=== PATIENT | female | born 1930 | race Caucasian/White ===

== ENCOUNTER 2017-01-12 07:40 | Inpatient (IN) | payer MEDICARE, OTHER ==
[2017-01-12] MEDS ORDERED: ONDANSETRON HCL/PF 2 MG/ML VIAL IV ONE ×2 (08:35→10:36)
[2017-01-12] MEDS ORDERED: HYDROmorphone HCL 1 MG/ML DISP.SYRIN IV ONE ×2 (08:35→10:17)
[2017-01-12] MEDS ORDERED: HYDROmorphone HCL 1 MG/ML DISP.SYRIN ONE ×2 (08:40→10:37)
[2017-01-12] MEDS ORDERED: ONDANSETRON HCL/PF 2 MG/ML VIAL ONE ×2 (08:40→10:37)
--- NOTE | 2017-01-12 08:43 | ERNOTE ---
Abdominal HPI - General Chief Complaint: Nausea/Vomiting Time Seen by Provider: 01/12/17 08:26 Source: patient, family Exam Limitations: no limitations - Immun/Allergies/Home Medications Immunizatons: IMMUNIZATION HX Immunizations Up to Date Yes History of Influenza Vaccine No Hx Pneumococcal Vaccination No Allergies/Adverse Reactions: Allergies ketoprofen [From Oruvail] Adverse Reaction (Mild, Verified 01/12/17 14:03) stomach pain methadone [Methadone] Adverse Reaction (Mild, Verified 01/12/17 14:03) nausea, dizziness Sulfa (Sulfonamide Antibiotics) Adverse Reaction (Mild, Verified 01/12/17 14:03) Nausea Home Medications: HOME MEDICATIONS Albuterol Sulfate [Proventil Hfa] 2 inh IH Q4H PRN 06/03/13 [Last Taken Unknown] Metoprolol Tartrate [Lopressor] 25 mg PO BID 06/03/13 [Last Taken Unknown] Furosemide [Lasix] 40 mg PO DAILY PRN 07/04/15 [Last Taken Unknown] traMADol HCL [Ultram] 50 mg PO Q6H 07/04/15 [Last Taken Unknown] traMADol HCL [Ultram] 100 mg PO HS 08/01/15 [Last Taken Unknown] Apixaban [Eliquis] 5 mg PO BID 01/12/17 [Last Taken Unknown] Cyanocobalamin (Vitamin B-12) [Vitamin B12] 1,000 mcg PO DAILY 01/12/17 [Last Taken Unknown] - History of Present Illness Narrative: Patient started to vomit last night and has been dry heaving since. shortly after the vomiting started she also started to have right lower back pain ( severe, no aggravated by movement).She denies any abdominal pain, no diarrhea, no chest pain , no cough. Per her daughter she had similar pains last fall, was admitted for possible UTI and broke out with a shingles rash a few days later. Date (Duration): 01/11/17 Time (Timing): 21:00 Timing: constant Quality: severe, aching Activities at Onset: none Modifying Factors - (Worsens): Absent: breathing, movement Review of Systems - Review of Systems Constitutional: Absent: recent illness, fever, chills ENT: Present: nasal drainage. Absent: nose congestion, sore throat Respiratory: Absent: shortness of breath, cough Cardiology: Present: See HPI Gastrointestinal/Abdominal: Present: See HPI Genitourinary: Present: no symptoms reported Musculoskeletal: Present: back pain Skin: Absent: rash Neurological: Absent: headache, weakness, numbness - Patient's Past Medical History Patient History - Medical: Arthritis, Cataracts, Chronic Pain, GERD, Osteoarthritis, UTI'S, Other Patient History - Cardiac/Respiratory: Hypertension Patient History - Cancer: No Hx of Cancer Patient History - Surgical Procedures: Hysterectomy, Total Hip Replacement, Other Patient History - Other: None - Family History Sister Family History - Medical: , Rheumatoid Arthritis Mother Family History - Medical: Father Family History - Medical: Family History - Cardiac/Respiratory: Coronary Heart Disease, COPD - Social History Living Situations: spouse Abuse History: No History of abuse Psych History: No pertinent hx Does anyone smoke in the home?: No Smoking Status: Never smoker Alcohol Use: none Drug Use: none - Immunizations Immunizations Up to Date: Yes Hx Pneumococcal Vaccination: No History of Influenza Vaccine: No Physical Exam - Physical Exam General Appearance: Present: wd/wn, alert, no apparent distress, anxious Eye Exam: Normal inspection: bilateral Ears, Nose, Throat: Present: normal ENT inspection, normal pharynx Respiratory: Present: no respiratory distress, no accessory muscle use, chest nontender, rales - throughout Cardiovascular/Chest: Present: regular rate, rhythm, systolic murmur Gastrointestinal/Abdominal: Present: normal bowel sounds, nontender, nondistended, soft Back Exam: Present: normal inspection, normal range of motion, no CVA tenderness Extremity Exam: Present: no edema Neurological Exam: Present: alert, oriented, normal mood/affect Skin Exam: Present: normal color, warm/dry ED Progress - Results and Orders Patient's Lab Results:: I have reviewed the patient's lab results. - Vital Signs Patient's Vital Signs:: I have reviewed the patient's vital signs. Vital Signs: Vital Signs 01/12/17 08:17 Temperature 36.6 C Pulse Rate 93 Respiratory 13 Rate Blood Pressure 169/106 O2 Sat by Pulse 93 Oximetry - EKG EKG: atrial fibrillation, nonspecific ST T wave changes, other - PVCs EKG read: Interp. by me - X-Ray X-Ray #1 X-Ray: chest - left lower lobe infiltrate Interpretation: Reviewed by me X-Ray #2 X-Ray: abdomen - no acute Interpretation: Reviewed by me - Progress/Reassessment Chief Complaint: Nausea/Vomiting Progress Note-Subjective: 01/12/17 10:16 explained results to patient and family, suggested admission for pneumonia, agreed denies cough, shortness of breath or chest pain 01/12/17 10:40 discussed with patsy Silvestre to admit for observation, start rocephin and zithromax IV will admit because of patients age Departure - Departure Clinical Impression: Pneumonia Qualifiers: Pneumonia type: due to unspecified organism Laterality: left Lung location: lower lobe of lung Qualified Code(s): J18.1 - Lobar pneumonia, unspecified organism Disposition: [facility] Condition: Good
[2017-01-12 08:51] LABS: Hemoglobin 12.7 gm/dL (12.5-16.0); Mean Cell Volume 99.8 fl (78-100); Mean Corpuscular Hemoglobin 31.7 pg (27-31); Mean Corpuscular Hgb Conc 31.8 g/dl (32-36); Mean Platelet Volume 10.2 fl (6.0-9.5); Neutrophil # 11.6 K/mm3 (1.3-6.0); Neutrophil % 83.5 % (42-75.0); Platelet Count 189 K/mm3 (150-450); Red Blood Count 4.01 M/mm3 (4.2-5.4); White Blood Count 13.9 K/mm3 (4.0-10.5)
--- OUTSIDE RECORDS SUMMARY | 2017-01-12 08:58 | XMS REPORT | Continuity of Care Document ---
:1930 Author Organization [facility] ([facility]) [place] [address] Phone [phone] Care Team Providers Name Role Phone Sierraqingerica Franciaclayton Primary Care Provider [phone] Source Comments This disclosure is being made pursuant to the Care Everywhere program, applicable federal and state laws, and may not contain all informaitonavailable regarding this patient.[facility] ([facility]) Active Allergies and Adverse Reactions No Known Allergies Current Medications Prescription Sig. Disp. Refills Start Date End Date Status lisinopril 10 mg tablet Take by mouth Active daily. cyanocobalamin (VITAMIN Take 1,000 mcg by Active B-12) 1,000 mcg tablet mouth daily. Cholecalciferol, Vitamin Take by mouth. Active D3, (VITAMIN D) 1,000 unit Cap Ascorbic Acid (VITAMIN C) Take by mouth. Active 1,000 mg Tab warfarin 2 mg tablet Take 2 mg by Active mouth daily. OXYCODONE HCL/ACETAMINOPHEN Take by mouth Active (ENDOCET PO) every 4 hours as needed. Active Problems Not on file Social History Tobacco Use Types Packs/Day Years Used Date Never Smoker Alcohol Use Drinks/Week oz/Week Comments No Last Filed Vital Signs Vital Sign Reading Time Taken Blood Pressure 133/81 02/13/2011 2:12 PM CDT Pulse 95 02/13/2011 2:12 PM CDT Temperature - - Respiratory Rate - - Height 1.56 m (5' 1.42") 02/13/2011 2:12 PM CDT Weight 91.7 kg (202 lb 2.6 oz) 02/13/2011 2:12 PM CDT Body Mass Index 37.68 02/13/2011 2:12 PM CDT Oxygen Saturation - - Plan of Care Health Maintenance Due Date Last Done Comments Hepatitis B Vaccine (1 of 3 - Primary Series) 1930 Tdap Vaccine 1940 Lipid Disorder Screening 1947 Td Vaccine 1947 Zoster Vaccine 1989 Pneumococcal Vaccine (1 of 2 - PCV13) 1994 Influenza Vaccine: Seasonal (#1) 04/28/2016 Results from Last 3 Months Not on file
[2017-01-12 09:08] LABS: Albumin * 3.6 gm/dl (3.4-5.0); Anion Gap 13.3 mmol/L (6.8-13.8); BUN/Creatinine Ratio 25.3 (9.0-21.6); Bilirubin, Total 0.9 mg/dL (0.0-1.1); Carbon Dioxide 28.9 mmol/L (24-32.6); Potassium 4.2 mmol/L (3.4-4.6); Total Protein 7.3 gm/dL (6.2-8.2); Troponin I 0.018 ng/ml (0.00-0.10)
[2017-01-12 10:56] LABS: Urine Bilirubin Negative (NEGATIVE); Urine Blood 50 /ul (NEGATIVE); Urine Ketone Negative (NEGATIVE); Urine Nitrite Negative (NEGATIVE); Urine Protein 30 mg/dL (NEGATIVE); Urine Specific Gravity 1.025 SP.GR. (1.005-1.010); Urine Urobilinogen Normal (NORMAL); Urine pH 6.5 pH (5.0-7.0)
--- OUTSIDE RECORDS SUMMARY | 2017-01-12 11:02 | XMS REPORT | Continuity of Care Document ---
:1930 Author Organization [facility] ([facility]) [place] [address] Phone [phone] Care Team Providers Name Role Phone Sierraqingerica Franciaclayton Primary Care Provider [phone] Source Comments This disclosure is being made pursuant to the Care Everywhere program, applicable federal and state laws, and may not contain all informaitonavailable regarding this patient.[facility] ([facility]) Active Allergies and Adverse Reactions No Known [...]
[2017-01-12 11:04] LABS: Urine Appearance Slightly Cloudy; Urine Bacteria 1+; Urine Color Yellow
[2017-01-12] MEDS ORDERED: AZITHROMYCIN 500 MG in DEXTROSE 5 % IN WATER 250 ML IV SCH ×2 (12:00)
[2017-01-12] MEDS ORDERED: ONDANSETRON HCL/PF 2 MG/ML VIAL IV PRN (12:17)
[2017-01-12] MEDS ORDERED: DEXTROSE 5%-NORMAL SALINE 1,000 ML IV PRN (12:19)
[2017-01-12] MEDS: ONDANSETRON HCL/PF 2 MG/ML VIAL IV PRN ×3 (13:11→20:46)
[2017-01-12] MEDS ORDERED: ALBUTEROL SULFATE 2.5 MG/3 ML VIAL.NEB IH PRN (13:16)
[2017-01-12] MEDS: oxyCODONE HCL/ACETAMINOPHEN 1 TAB TABLET PO PRN ×3 (13:21→21:31)
[2017-01-12] MEDS ORDERED: FUROSEMIDE 10 MG/ML VIAL IV ONE (14:40)
--- NOTE | 2017-01-12 14:43 | HP ---
Chief Complaint - Chief Complaint Date of Service: 01/12/17 Time of Service: 14:38 Chief Complaint: Increasing back pain from 01/11/17. History of Present Illness: 86-year-old woman with a history of chronic A. fib on Eliquis , HLD, HTN, OA, B12 deficiency, obesity and remote history of CHF who brought to the ER for evaluation of increasing back pain, abdominal pain and nausea of approximately 1 day duration. She denies any cough/shortness of breath. Abnormal findings included elevated WBC 13.9, possible infiltrate/consolidation in LEFT mid/lower lung sood and vascular markings, increased BNP 3809 and possible UTI. Patient received CTX 1 g IV and azithromycin 500 mg IV in the ER and was admitted into observation. - Patient's Past Medical History Additional info: PAST MEDICAL HISTORY: Atrial Fibrillation - 2003 on chronic warfarin therapy - had bleeding into leg in 2014- warfarin DC'd and started Eliquis; CHF - 1988-severe MR, with edema. , COPD, Hypertension, Hyperlipidemia. Severe osteoarthritis controlled with tramadol ; obesity; UTIs; GERD; chronic pain; cataracts. Shingles Patient History - Cancer: No Hx of Cancer Additional Info: PAST SURGICAL HISTORY: Hysterectomy - EULOGIO/[id number]; JUNI L4-L5 1998;Total Hip Replacement - RT-09/1999. Patient History - Other: None - Family History Sister Family History - Medical: - 37- rheumatoid arthritis Mother Family History - Medical: - 68Parkinson's disease Father Family History - Medical: - 78CAD, COPD - Social History Living Situations: spouse Abuse History: No History of abuse Psych History: No pertinent hx Does anyone smoke in the home?: No Smoking Status: Never smoker Have you smoked in the past 12 months: No Do you dip or chew tobacco: No Patient requests Smoking Cessation Consult: No Initiate information on Smoking Cessation: No Alcohol Use: none Drug Use: none - Immunizations Immunizations Up to Date: Yes Hx Pneumococcal Vaccination: No History of Influenza Vaccine: No Review Of Systems (GEN) - Review of Systems Cardiac: Absent: Chest Pain, Edema Abdominal: Present: Nausea. Absent: Vomiting Musculoskeletal: Present: Back Pain Allergies/Adverse Reactions: Allergies Allergy/AdvReac Type Severity Reaction Status Date / Time ketoprofen [From Oruvail] AdvReac Mild stomach Verified 01/12/17 14:03 pain methadone [Methadone] AdvReac Mild nausea, Verified 01/12/17 14:03 dizziness Sulfa (Sulfonamide AdvReac Mild Nausea Verified 01/12/17 14:03 Antibiotics) Home Medications: HOME MEDICATIONS Albuterol Sulfate [Proventil Hfa] 2 inh IH Q4H PRN 06/03/13 [Last Taken Unknown] Metoprolol Tartrate [Lopressor] 25 mg PO BID 06/03/13 [Last Taken Unknown] Furosemide [Lasix] 40 mg PO DAILY PRN 07/04/15 [Last Taken Unknown] traMADol HCL [Ultram] 50 mg PO Q6H 07/04/15 [Last Taken Unknown] traMADol HCL [Ultram] 100 mg PO HS 08/01/15 [Last Taken Unknown] Apixaban [Eliquis] 5 mg PO BID 01/12/17 [Last Taken Unknown] Cyanocobalamin (Vitamin B-12) [Vitamin B12] 1,000 mcg PO DAILY 01/12/17 [Last Taken Unknown] Exam - Exam Vital Signs: Vital Signs - Last Taken Temp 36.8 C 01/12/17 14:24 Pulse 91 01/12/17 14:24 Resp 18 01/12/17 14:24 BP 129/85 01/12/17 14:24 Pulse Ox 99 01/12/17 14:24 Constitutional: Present: Elderly, Obese - looks uncomfortable. ENT Exam: Present: hearing grossly normal, moist mucous membranes Eye Exam: bilateral eye: PERRL, EOMI Neck: Present: normal inspection, trachea midline Respiratory: Present: normal breath sounds, no accessory muscle use Cardiovascular/Chest: Present: systolic murmur - III/ at LSB radiating to axilla, irregularly irregular Abdomen: Present: Normal bowel sounds, soft, nontender, nondistended, obese /Rectal: Present: Exam deferred Extremity: Present: normal inspection. Absent: lower extremity edema Skin Exam: Present: normal color, warm/dry Neurologic: Present: alert, oriented x 3. Absent: depressed affect Eye contact: Present: cooperative, good eye contact, normal speech Thoughts: Present: normal thought pattern, normal mood /affect Diagnostic Studies: Laboratory Tests 01/12/17 08:45 WBC 13.9 H Hgb 12.7 Hct 40.0 Plt Count 189 01/12/17 08:45 Plasma Sodium 140 Potassium 4.2 Chloride 101 Carbon Dioxide 28.9 BUN 22 Creatinine 0.87 Est GFR (Non-Af Amer) 65 Random Glucose 150 H Calcium Adj for Albumin 9.0 Total Bilirubin 0.9 AST 20 ALT 16 L Alkaline Phosphatase 96 Albumin 3.6 01/12/17 08:45 Troponin I 0.018 B-Natriuretic Peptide 3809 H 01/12/17 08:36 Urine pH 6.5 Ur Specific [place] 1.025 Urine Protein 30 H Urine Blood 50 H Ur Leukocyte Esterase Negative Urine RBC 10-25 H Urine WBC 5-10 H Ur Epithelial Cells 0-5 Urine Bacteria 1+ H Urine Culture Comments Culture to follow CXR: Single portable AP view 08:35. 1. Left lower lobe consolidation suggested. 2. Pulmonary vascular condition suggested. 3. Stable cardiomegaly. Trachea in normal position. No pneumothorax/pleural fluid collections apparent. 4. DJD of spine/shoulders present. Assessment/Plan - Narrative Narrative: 1. Back pain with nausea: Symptoms nonspecific- could be related to UTI/pneumonia. Patient has chronic back pain for which she takes tramadol. No s/s of pneumonia, lung exam is normal. Urine culture pending. Try ondansetron for nausea and oxycodone/ acetaminophen for back pain for which she has taken in the past. Patient already received CTX 1 g IV and azithromycin 500 mg IV in ER. Repreat CXR PA and LAT in AM and check for Urine C/S prior to changing antibiotics. 2. Possible CHF: By CXR and BNP. Furosemide 60 mg IV 1. Spironolactone 25 mg PO x1. Strict I/ O. Check BMP in a.m. 3. Osteoarthritis with pain: On tramadol 50 mg 3 times a day and 100 mg at bedtime. 4. Chronic A. fib: On Eliquis 5 mg PO BID.
[2017-01-12] MEDS ORDERED: SPIRONOLACTONE 25 MG TABLET PO ONE (15:00)
[2017-01-13] MEDS: oxyCODONE HCL/ACETAMINOPHEN 1 TAB TABLET PO PRN (01:40)
[2017-01-13] MEDS: ONDANSETRON HCL/PF 2 MG/ML VIAL IV PRN (04:31)
[2017-01-13 06:06] LABS: Hematocrit 40.9 % (37.0-47.0); Hemoglobin 13.5 gm/dL (12.5-16.0); Mean Cell Volume 98.8 fl (78-100); Mean Corpuscular Hemoglobin 32.6 pg (27-31); Mean Platelet Volume 10.6 fl (6.0-9.5); Platelet Count 193 K/mm3 (150-450); Red Blood Count 4.14 M/mm3 (4.2-5.4); Red Cell Distribution Width 12.8 % (11.5-14.0); White Blood Count 19.1 K/mm3 (4.0-10.5)
[2017-01-13 06:09] LABS: Total Cells Counted 100
[2017-01-13 06:25] LABS: Band 2 % (0-2.0); Immature Granulocyte 1 (0-1); Lymphocyte 6 % (20-51); Monocyte 9 % (0-9); Neutrophil 82 % (42-75); Neutrophil # 15.7 K/mm3 (1.3-6.0); Platelet Estimate Normal (NORMAL); RBC Morphology Normal (NORMAL)
[2017-01-13 06:27] LABS: Anion Gap 10.7 mmol/L (6.8-13.8); BUN/Creatinine Ratio 18.3 (9.0-21.6); Calcium * 8.7 mg/dL (7.9-10.9); Carbon Dioxide 33.8 mmol/L (24-32.6); Estimated Creat Clear 32.9; Potassium 3.5 mmol/L (3.4-4.6)
[2017-01-13] MEDS ORDERED: PROMETHAZINE HCL 25 MG/ML AMPUL IM ONE (08:01)
--- NOTE | 2017-01-13 08:09 | PN ---
Subjective - Date and Time Seen Date: 01/13/17 Time: 07:55 Subjective Narrative: Liz is an 86 year old female admitted with LLL consolidation suspicious for pneumonia with vascular congestion and UTI - currently on IV rocephin. received azithromycin in the ER. patient was given lasix 60 mg IV yesterday with spironolactone 25 mg po x1. weight 87.2-->79.5 kg, I/Os -1445 ml in 24 hours. urine culture prelim has no growth. history of chronic afib on eliquis. wbc elevated 13.9 --> 19.1 with 82 neutrophils and 2 bands. chest xray done this am. Objective - Review of Systems Generalized/Overall Review: Reports: Malaise EENTM: Reports: No Symptoms Reported Respiratory: Reports: No Symptoms Reported Cardiac: Reports: No Symptoms Reported Abdominal: Reports: Nausea, Vomiting. Denies: Hematemesis, Constipation, Diarrhea Genitourinary Symptoms: Reports: No Symptoms Reported Musculoskeletal Complaints: Reports: Back Pain Neurological: Reports: Weakness Skin: Reports: No Symptoms Reported Endocrine: Reports: No Symptoms Reported Misc: All systems neg except as marked - Vitals Vitals: Last Vital Signs Temp 36.9 C 01/13/17 06:43 Pulse 98 01/13/17 06:43 Resp 16 01/13/17 06:43 BP 125/72 01/13/17 06:43 Pulse Ox 95 01/13/17 06:43 - Abnormal Lab Findings Abnormal Lab Findings: Abnormal Lab Results 01/13/17 01/13/17 Range/Units 06:00 06:00 WBC 19.1 H D (4.0-10.5) K/mm3 RBC 4.14 L (4.2-5.4) M/mm3 MCH 32.6 H (27-31) pg MPV 10.6 H (6.0-9.5) fl Neutrophils % (Manual) 82 H (42-75) % Lymphocytes % (Manual) 6 L (20-51) % Neutrophils # (Manual) 15.7 H (1.3-6.0) K/mm3 Lymphocytes # (Manual) 1.1 L (1.5-3.5) k/mm3 Monocytes # (Manual) 1.7 H (0.0-1.0) k/mm3 Chloride 96 L (97-106) mmol/L Carbon Dioxide 33.8 H (24-32.6) mmol/L Est GFR (Non-Af Amer) 53 L (60-130) mL/min Random Glucose 135 H (70-110) mg/dL B-Natriuretic Peptide 9063 H (5-550) pg/mL - Exam Constitutional: Present: Alert, Cooperative, Mild distress ENT Exam: Present: hearing grossly normal Neck: Present: full range of motion, supple Breasts: Present: Exam deferred Respiratory: Present: chest non-tender, no respiratory distress, no accessory muscle use, rhonchi Cardiovascular/Chest: Present: normal peripheral pulses, regular rate, rhythm, no chest tenderness Abdomen: Present: Normal bowel sounds, soft, nondistended /Rectal: Present: Exam deferred Extremity: Present: non-tender, normal inspection, no pedal edema Skin Exam: Present: normal color, warm/dry, no cyanosis Neurologic: Present: alert. Absent: facial droop Cauti Physician Documentation - Urinary Catheter Management Uretheral Urethral Indwelling: No Assessment/Plan - Problems/Diagnosis (1) Nausea Problem: Acute Narrative: possible multiple causes for this symptom: UTI vs constipation vs pain induced vs side effect from percocet vs other - treat with phenergan as patient indicates that this medication works better for her for nausea management. will transition patient back to ultram for pain. (2) Acute exacerbation of chronic low back pain Problem: Acute Narrative: unable to control pain with ultram. now on percocet with better pain management but this seems to be causing her too much added nausea. add lidoderm patch and heating pad. abdominal xray shows significant constipation - likely adding to pt's back pain - add dulcolax and senna tabs. (3) Congestive heart failure (CHF) Problem: Acute Qualifiers: Congestive heart failure type: unspecified congestive heart failure type Congestive heart failure chronicity: unspecified congestive heart failure chronicity Qualified Code(s): I50.9 - Heart failure, unspecified Narrative: Patient has diuresed well with the IV lasix and oral spirolactone given yesterday. charting reveals that patient is breathing better and has gone from 2L O2 to room air. continue strict I/Os and daily weights. (4) UTI (urinary tract infection) Problem: Suspected Qualifiers: Urinary tract infection type: acute cystitis Hematuria presence: without hematuria Qualified Code(s): N30.00 - Acute cystitis without hematuria Narrative: currently on IV rocephin daily. preliminary urine culture has no growth. await final culture. (5) Atrial fibrillation Problem: Chronic Qualifiers: Atrial fibrillation type: chronic Qualified Code(s): I48.2 - Chronic atrial fibrillation Narrative: chronic in nature - on eliquis. on tele. monitor. on lopressor for rate control. (6) Constipation Problem: Chronic Qualifiers: Constipation type: slow transit constipation Qualified Code(s): K59.01 - Slow transit constipation Narrative: likely contributing to back pain and/or nausea. add dulcolax and senna tabs. monitor. (7) Hypertension Problem: Chronic Qualifiers: Hypertension type: essential hypertension Qualified Code(s): I10 - Essential (primary) hypertension Narrative: monitor blood pressure - continue home meds. (8) Osteoarthritis Problem: Chronic Qualifiers: Osteoarthritis location: multiple joints Osteoarthritis type: primary Qualified Code(s): M15.0 - Primary generalized (osteo)arthritis Narrative: on ultram for pain. this is likely the cause of her chronic constipation. pt will likely need stool softener at discharge if she continues to use narcotic pain meds at discharge. (9) Pneumonia Problem: Acute Qualifiers: Pneumonia type: due to unspecified organism Laterality: left Lung location: lower lobe of lung Qualified Code(s): J18.1 - Lobar pneumonia, unspecified organism Narrative: in the LLL - possible pneumonia. currently on iv rocephin every 24 hours. repeat chest xray shows suggested lingular infiltrate - patient was given azithromycin 500 mg iv in the ER yesterday - will continue this daily. add cornet and check sputum culture. wbc increased in 24 hours. afebrile. vss. monitor for now. check labs in the am.
[2017-01-13] MEDS: LIDOCAINE 1 PATCH ADH..PATCH TP SCH (08:16)
[2017-01-13] MEDS ORDERED: AZITHROMYCIN 250 MG TABLET PO SCH (09:00)
[2017-01-13] MEDS ORDERED: PROMETHAZINE HCL 12.5 MG in DEXTROSE 5 % IN WATER 50 ML IV ONE ×2 (09:01)
[2017-01-13] MEDS ORDERED: BISACODYL 5 MG TABLET.DR PO ONE (09:38)
[2017-01-13] MEDS ORDERED: POTASSIUM CHLORIDE 40 MEQ/15 ML BTL PO ONE (09:38)
[2017-01-13] MEDS: AZITHROMYCIN 500 MG in DEXTROSE 5 % IN WATER 250 ML IV SCH ×2 (09:41)
[2017-01-13] MEDS ORDERED: AZITHROMYCIN 500 MG in DEXTROSE 5 % IN WATER 250 ML IV SCH ×4 (09:45→11:15)
[2017-01-13] MEDS: SENNOSIDES/DOCUSATE SODIUM 1 TAB TABLET PO SCH ×2 (09:59→20:19)
[2017-01-13] MEDS: PROMETHAZINE HCL 25 MG TABLET PO SCH ×2 (11:27→17:38)
[2017-01-13] MEDS ORDERED: MINERAL OIL 1 ENEMA BTL RC ONE (13:04)
[2017-01-13] MEDS: SCOPOLAMINE HYDROBROMIDE 1.5 MG PATC TD SCH (14:24)
[2017-01-13] MEDS: METOPROLOL TARTRATE 25 MG TABLET PO SCH ×2 (14:26→20:20)
[2017-01-13] MEDS: APIXABAN 2.5 MG TABLET PO SCH ×2 (14:26→20:19)
[2017-01-13] MEDS: PROMETHAZINE HCL 25 MG TABLET PO PRN (14:32)
[2017-01-13] MEDS: traMADol HCL 50 MG TABLET PO PRN (20:19)
[2017-01-13] MEDS: REMOVE PATCH 1 PATCH PATCH TP SCH (20:20)
[2017-01-14] MEDS: PROMETHAZINE HCL 25 MG TABLET PO PRN ×2 (02:37→23:12)
[2017-01-14] MEDS: traMADol HCL 50 MG TABLET PO PRN ×2 (04:46→23:38)
[2017-01-14 05:51] LABS: Hematocrit 39.2 % (37.0-47.0); Mean Cell Volume 97.5 fl (78-100); Mean Corpuscular Hemoglobin 32.3 pg (27-31); Mean Corpuscular Hgb Conc 33.2 g/dl (32-36); Platelet Count 182 K/mm3 (150-450); Red Blood Count 4.02 M/mm3 (4.2-5.4); White Blood Count 17.7 K/mm3 (4.0-10.5)
[2017-01-14 06:04] LABS: Total Cells Counted 100
[2017-01-14 06:08] LABS: Albumin * 2.9 gm/dl (3.4-5.0); Anion Gap 8.8 mmol/L (6.8-13.8); BUN/Creatinine Ratio 22.4 (9.0-21.6); Bilirubin, Total 1.6 mg/dL (0.0-1.1); Ca. Corrected For Albumin 9.3 mg/dL (8.4-10.2); Calcium * 8.7 mg/dL (7.9-10.9); Carbon Dioxide 32.5 mmol/L (24-32.6); Potassium 3.3 mmol/L (3.4-4.6); Total Protein 6.7 gm/dL (6.2-8.2)
[2017-01-14 06:25] LABS: Lymphocyte 5 % (20-51); Monocyte 12 % (0-9); Neutrophil 83 % (42-75); Neutrophil # 14.7 K/mm3 (1.3-6.0); Platelet Estimate Normal (NORMAL); RBC Morphology Normal (NORMAL)
[2017-01-14] MEDS ORDERED: POTASSIUM CHLORIDE 20 MEQ TABLET.SA PO ONE (06:40)
[2017-01-14] MEDS ORDERED: MAGNESIUM CITRATE 300 ML BTL PO ONE (06:50)
--- NOTE | 2017-01-14 06:53 | PN ---
Subjective - Date and Time Seen Date: 01/14/17 Time: 06:50 Subjective Narrative: Pt examined this am. Reports feeling nauseated and vomited at least twice. No good results with dulcolax AL & Enema. Objective - Vitals Vitals: Last Vital Signs Temp 36.9 C 01/14/17 03:14 Pulse 106 H 01/14/17 03:14 Resp 18 01/14/17 03:14 BP 120/74 01/14/17 03:14 Pulse Ox 97 01/14/17 03:14 - Abnormal Lab Findings Abnormal Lab Findings: Abnormal Lab Results 01/14/17 01/14/17 Range/Units 05:24 05:24 WBC 17.7 H (4.0-10.5) K/mm3 RBC 4.02 L (4.2-5.4) M/mm3 MCH 32.3 H (27-31) pg MPV 11.0 H (6.0-9.5) fl Neutrophils % (Manual) 83 H (42-75) % Lymphocytes % (Manual) 5 L (20-51) % Monocytes % (Manual) 12 H (0-9) % Neutrophils # (Manual) 14.7 H (1.3-6.0) K/mm3 Lymphocytes # (Manual) 0.9 L (1.5-3.5) k/mm3 Monocytes # (Manual) 2.1 H (0.0-1.0) k/mm3 Potassium 3.3 L (3.4-4.6) mmol/L BUN 24 H (3-23) mg/dL Est GFR (Non-Af Amer) 52 L (60-130) mL/min BUN/Creatinine Ratio 22.4 H (9.0-21.6) Random Glucose 134 H (70-110) mg/dL Total Bilirubin 1.6 H (0.0-1.1) mg/dL B-Natriuretic Peptide 6125 H (5-550) pg/mL Albumin 2.9 L (3.4-5.0) gm/dl - Exam Constitutional: Present: Alert, Oriented x3, Mild distress ENT Exam: Present: normal ENT inspection, hearing grossly normal Neck: Present: full range of motion, supple, normal inspection Breasts: Present: Exam deferred Respiratory: Present: lungs clear, no accessory muscle use Cardiovascular/Chest: Present: normal peripheral pulses, regular rate, rhythm, no chest tenderness Abdomen: Present: Normal bowel sounds, soft /Rectal: Present: Exam deferred Extremity: Present: normal range of motion, non-tender, normal inspection Skin Exam: Present: no cyanosis, cool/dry Lymphatic: Present: no adenopathy Neurologic: Present: alert, oriented x 3, depressed affect Appearance: Present: appropriate insight Eye contact: Present: cooperative, good eye contact, normal speech Thoughts: Present: normal thought pattern, no apparent hallucination Cauti Physician Documentation - Urinary Catheter Management Uretheral Urethral Indwelling: No Assessment/Plan Plan Narrative: On Rocephin and Azithromycin to cover for the PNA and UTI. Will change to appropriate antibiotics once blood & urine culture results. WBC remains elevated. Anticipate another 3-5 days of hospital stay. For continued nausea- will use prn antiemetics and advance diet as tolerated. - Problems/Diagnosis (1) Pneumonia Problem: Acute Qualifiers: Pneumonia type: due to unspecified organism Laterality: left Lung location: lower lobe of lung Qualified Code(s): J18.1 - Lobar pneumonia, unspecified organism (2) UTI (urinary tract infection), bacterial Problem: Acute (3) Congestive heart failure (CHF) Problem: Acute Qualifiers: Congestive heart failure type: unspecified congestive heart failure type Congestive heart failure chronicity: unspecified congestive heart failure chronicity Qualified Code(s): I50.9 - Heart failure, unspecified (4) Chronic constipation Problem: Chronic (5) Acute exacerbation of chronic low back pain Problem: Acute (6) Nausea Problem: Acute
[2017-01-14] MEDS: PROMETHAZINE HCL 25 MG TABLET PO SCH ×3 (07:34→17:04)
[2017-01-14] MEDS: AZITHROMYCIN 500 MG in DEXTROSE 5 % IN WATER 250 ML IV SCH ×2 (08:13)
[2017-01-14] MEDS ORDERED: AZITHROMYCIN 250 MG TABLET PO SCH (09:00)
[2017-01-14] MEDS: APIXABAN 2.5 MG TABLET PO SCH ×2 (09:21→20:39)
[2017-01-14] MEDS: SENNOSIDES/DOCUSATE SODIUM 1 TAB TABLET PO SCH ×2 (09:22→20:40)
[2017-01-14] MEDS: LIDOCAINE 1 PATCH ADH..PATCH TP SCH (09:22)
[2017-01-14] MEDS: METOPROLOL TARTRATE 25 MG TABLET PO SCH ×2 (09:23→20:39)
[2017-01-14] MEDS: CYANOCOBALAMIN 1,000 MCG TABLET PO SCH (09:24)
[2017-01-14] MEDS: REMOVE PATCH 1 PATCH PATCH TP SCH (20:40)
[2017-01-15 06:06] LABS: Hematocrit 36.8 % (37.0-47.0); Hemoglobin 12.2 gm/dL (12.5-16.0); Mean Cell Volume 97.1 fl (78-100); Mean Corpuscular Hemoglobin 32.2 pg (27-31); Mean Corpuscular Hgb Conc 33.2 g/dl (32-36); Mean Platelet Volume 10.2 fl (6.0-9.5); Neutrophil % 78.3 % (42-75.0); Platelet Count 172 K/mm3 (150-450); Red Blood Count 3.79 M/mm3 (4.2-5.4); Red Cell Distribution Width 12.9 % (11.5-14.0)
[2017-01-15 06:09] LABS: Total Cells Counted 100
[2017-01-15 06:17] LABS: Anion Gap 10.3 mmol/L (6.8-13.8); BUN/Creatinine Ratio 26.7 (9.0-21.6); Calcium * 8.8 mg/dL (7.9-10.9); Carbon Dioxide 30.4 mmol/L (24-32.6); Potassium 3.7 mmol/L (3.4-4.6)
[2017-01-15 07:03] LABS: Lymphocyte 15 % (20-51); Monocyte 13 % (0-9); Neutrophil 72 % (42-75); Neutrophil # 10.1 K/mm3 (1.3-6.0)
[2017-01-15 07:04] LABS: Hypersegmented Polys 3+; Platelet Estimate Increased (NORMAL)
[2017-01-15 07:05] LABS: Rouleaux 2+
[2017-01-15] MEDS: PROMETHAZINE HCL 25 MG TABLET PO SCH ×3 (07:19→16:43)
[2017-01-15] MEDS: AZITHROMYCIN 500 MG in DEXTROSE 5 % IN WATER 250 ML IV SCH ×2 (08:23)
[2017-01-15] MEDS: SENNOSIDES/DOCUSATE SODIUM 1 TAB TABLET PO SCH ×2 (08:49→21:02)
[2017-01-15] MEDS: APIXABAN 2.5 MG TABLET PO SCH ×2 (08:49→20:57)
[2017-01-15] MEDS: CYANOCOBALAMIN 1,000 MCG TABLET PO SCH (08:49)
[2017-01-15] MEDS: METOPROLOL TARTRATE 25 MG TABLET PO SCH ×2 (08:49→20:57)
[2017-01-15] MEDS: LIDOCAINE 1 PATCH ADH..PATCH TP SCH (08:50)
--- NOTE | 2017-01-15 15:33 | PN ---
Subjective - Date and Time Seen Date: 01/15/17 Time: 15:27 Subjective Narrative: patient has occassional nausea but tolerating food well. She feels she is gradually improving. No no vomiting/constipation. Ambulating with walker. Objective - Review of Systems Generalized/Overall Review: Reports: Weakness. Denies: Chills Respiratory: Denies: Cough, Shortness of Breath Cardiac: Denies: Chest Pain, Edema Abdominal: Reports: Nausea Musculoskeletal Complaints: Reports: Back Pain Neurological: Denies: Anxiety, Depressed - Vitals Vitals: Last Vital Signs Temp 36.4 C L 01/15/17 10:08 Pulse 106 H 01/15/17 10:08 Resp 17 01/15/17 10:08 BP 116/78 01/15/17 10:08 Pulse Ox 92 01/15/17 10:08 - Abnormal Lab Findings Abnormal Lab Findings: Laboratory Tests 01/14/17 01/15/17 05:24 05:44 WBC 17.7 H 14.0 H D Hgb 13.0 12.2 L Hct 39.2 36.8 L Plt Count 182 172 01/14/17 01/15/17 05:24 05:44 Plasma Sodium 136 132 Potassium 3.3 L 3.7 Chloride 97 95 L Carbon Dioxide 32.5 30.4 BUN 24 H 24 H Creatinine 1.07 0.90 Est GFR (Non-Af Amer) 52 L 63 D - Exam Constitutional: Present: Elderly, Obese - alert and oriented x 3 ENT Exam: Present: hearing grossly normal, moist mucous membranes Respiratory: Present: no respiratory distress, crackles - Left base,, No wheezing Cardiovascular/Chest: Present: regular rate, rhythm, systolic murmur - III/ at LSB radiating to axilla Extremity: Present: no pedal edema. Absent: inflammation Skin Exam: Present: normal color, warm/dry Cauti Physician Documentation - Urinary Catheter Management Uretheral Urethral Indwelling: No Assessment/Plan Plan Narrative: 1. Lingular infiltrate Continue Ceftriaxone 1 g IV daily and azithromycin 500 mg IV daily day #4. WBC decreased from 19.1-14.0K. patient had mild nausea/back pain is gradually improving. She has no history of sputum production/shortness of breath. Possible discharge in a.m. if stable. 2. UTI: Culture- no growth 3. Chronic A. fib: On Eliquis 5 mg PO BID. 4. CHF due to severe MR and normal EF [HFpEF]. 5. 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 6. Stool retention: Noted on abdominal x-ray requiring enema and now on senna.
[2017-01-15 19:27] LABS: Hematocrit 38.2 % (37.0-47.0); Hemoglobin 12.7 gm/dL (12.5-16.0); Mean Cell Volume 97.2 fl (78-100); Mean Corpuscular Hemoglobin 32.3 pg (27-31); Mean Corpuscular Hgb Conc 33.2 g/dl (32-36); Mean Platelet Volume 10.6 fl (6.0-9.5); Platelet Count 212 K/mm3 (150-450); Red Blood Count 3.93 M/mm3 (4.2-5.4); Red Cell Distribution Width 12.7 % (11.5-14.0); White Blood Count 17.3 K/mm3 (4.0-10.5)
[2017-01-15 19:34] LABS: Total Cells Counted 100
[2017-01-15 20:04] LABS: Band 2 % (0-2.0); Lymphocyte 12 % (20-51); Monocyte 9 % (0-9); Neutrophil 77 % (42-75); Neutrophil # 13.3 K/mm3 (1.3-6.0)
[2017-01-15] MEDS: REMOVE PATCH 1 PATCH PATCH TP SCH (21:02)
[2017-01-16 05:36] LABS: Hemoglobin 12.4 gm/dL (12.5-16.0); Mean Cell Volume 97.1 fl (78-100); Mean Corpuscular Hemoglobin 32.5 pg (27-31); Mean Corpuscular Hgb Conc 33.5 g/dl (32-36); Mean Platelet Volume 11.4 fl (6.0-9.5); Platelet Count 185 K/mm3 (150-450); Red Blood Count 3.81 M/mm3 (4.2-5.4); Red Cell Distribution Width 12.7 % (11.5-14.0); White Blood Count 16.6 K/mm3 (4.0-10.5)
[2017-01-16 05:46] LABS: Anion Gap 11.2 mmol/L (6.8-13.8); BUN/Creatinine Ratio 22.8 (9.0-21.6); Calcium * 8.8 mg/dL (7.9-10.9); Carbon Dioxide 29.3 mmol/L (24-32.6); Estimated Creat Clear 37.2; Potassium 3.5 mmol/L (3.4-4.6)
[2017-01-16 05:58] LABS: Total Cells Counted 100
[2017-01-16 06:25] LABS: Atypical (Reactive) Lymph 1 % (0-2); Lymphocyte 9 % (20-51); Monocyte 9 % (0-9); Neutrophil 81 % (42-75); Neutrophil # 13.4 K/mm3 (1.3-6.0)
[2017-01-16 06:27] LABS: Platelet Estimate Normal (NORMAL)
[2017-01-16 06:36] LABS: RBC Morphology Normal (NORMAL)
[2017-01-16] MEDS: AZITHROMYCIN 500 MG in DEXTROSE 5 % IN WATER 250 ML IV SCH ×2 (07:42)
[2017-01-16] MEDS: LIDOCAINE 1 PATCH ADH..PATCH TP SCH (10:14)
[2017-01-16] MEDS: SENNOSIDES/DOCUSATE SODIUM 1 TAB TABLET PO SCH (10:15)
[2017-01-16] MEDS: CYANOCOBALAMIN 1,000 MCG TABLET PO SCH (10:15)
[2017-01-16] MEDS: APIXABAN 2.5 MG TABLET PO SCH (10:15)
[2017-01-16] MEDS: METOPROLOL TARTRATE 25 MG TABLET PO SCH (10:15)
[2017-01-16 11:05] VITALS: BP 132/68
[2017-01-16] MEDS: SCOPOLAMINE HYDROBROMIDE 1.5 MG PATC TD SCH (13:23)
--- NOTE | 2017-01-16 13:50 | DS ---
(1) Lingular pneumonia Problem: Acute (2) Lung consolidation Problem: Acute (3) (HFpEF) heart failure with preserved ejection fraction Problem: Acute (4) Nausea Problem: Acute (5) Constipation Problem: Resolved Qualifiers: Constipation type: slow transit constipation Qualified Code(s): K59.01 - Slow transit constipation (6) Acute exacerbation of chronic low back pain Problem: Acute (7) UTI (urinary tract infection) Problem: Ruled-out Qualifiers: Urinary tract infection type: acute cystitis Hematuria presence: without hematuria Qualified Code(s): N30.00 - Acute cystitis without hematuria (8) Atrial fibrillation Problem: Chronic Qualifiers: Atrial fibrillation type: chronic Qualified Code(s): I48.2 - Chronic atrial fibrillation (9) Hypertension Problem: Chronic Qualifiers: Hypertension type: essential hypertension Qualified Code(s): I10 - Essential (primary) hypertension (10) Osteoarthritis Problem: Chronic Qualifiers: Osteoarthritis location: multiple joints Osteoarthritis type: primary Qualified Code(s): M15.0 - Primary generalized (osteo)arthritis Description of Stay: Date of admission: 01/12/17 Date of Discharge: 01/16/17 Description of stay: 01/12/17: 86 year old female who presented to the ER with c/o increased back pain , abdominal pain and nausea x1 day. WBC elevated at 13.9, possible left lingular infiltrate, possible UTI, increated BNP at 3809. Started on rocephin 1 gm IV and azithromycin 500 mg iv in the ER. admitted for observation. given 60 mg IV x1 and spironolactone 25 po x1 for possible CHF. 01/13/17 I/O -1445 and weight down 7 kg. O2 down from 2 liters to room air. continue rocephin 1 gm iv and azithromycin 500 mg iv for possible lingular pneumonia. 01/14/17 cont iv abx to cover to possible pneumonia. 01/15/17 cont iv abx, wbc down, chf due to severe MR with normal EF 01/16/17 discharged, oral abx: levaquin 250 mg po x5 days, follow up with pcp in 2-3 weeks. Procedures Performed: none Discharge Disposition: Home self care Disposition: Home self-care Condition: Undetermined Discharge Activity: Activity as tolerated Discharge Diet: Low salt, Low fat/chol, Other - Push fluids Referrals: Ivis Cash MD [Primary Care Provider] - Problem Oriented Discharge Instructions to Patient/Family: Community-Acquired Pneumonia, Adult, [id number] Additional Patient Instructions (free text): [facility] courtesy visit. Please fax orders and call report upon discharge. Repeat CBC on 01/19/2017. Follow up with primary care physician in 2-[address] Cash on 02-02-17 @ 2:30pm New Medications: - Vitamin D3 5000 units by mouth daily - Levaquin 250 mg by mouth daily x5 days (start tomorrow, 01/17/17) - Sennosides / Docusate Sodium - 2 tabs by mouth at bedtime. Prescriptions (Any new or edited meds): Cholecalciferol (Vitamin D3) [Vitamin D3] 5,000 unit PO DAILY #100 capsule Levofloxacin [Levaquin] 250 mg PO DAILY #5 tablet Sennosides/Docusate Sodium [Senna-Docusate Sodium Tablet] 2 each PO QPM #60 tablet Complete Home Medications List: Complete Home Medication List: Albuterol Sulfate [Proventil Hfa] 2 inh IH Q4H PRN 06/03/13 Metoprolol Tartrate [Lopressor] 25 mg PO BID 06/03/13 Furosemide [Lasix] 40 mg PO DAILY PRN 07/04/15 traMADol HCL [Ultram] 50 mg PO Q6H 07/04/15 traMADol HCL [Ultram] 100 mg PO HS 08/01/15 Apixaban [Eliquis] 5 mg PO BID 01/12/17 Cyanocobalamin (Vitamin B-12) [Vitamin B12] 1,000 mcg PO DAILY 01/12/17 Cholecalciferol (Vitamin D3) [Vitamin D3] 5,000 unit PO DAILY #100 capsule 01/16 Levofloxacin [Levaquin] 250 mg PO DAILY #5 tablet 01/16/17 Sennosides/Docusate Sodium [Senna-Docusate Sodium Tablet] 2 each PO QPM #60 tablet 01/16/17 Amb Orders for Discharge: CBC Time Frame: 01/19/17, Location: Determined By Patient
== END 2017-01-16 18:10 | disposition home health service (06) | DRG 291 ==
LOC: ER 07:40 → MS 10:58 → OBSVTOIN 01-13 10:09
PROVIDERS: ADMIT Internal Medicine; ATTEND Internal Medicine
PROC: 0T9B7ZZ Drainage of Bladder, Via Natural or Artificial Opening (ICD-10-PCS; principal; 2017-01-12)
DX: I50.31 Acute diastolic (congestive) heart failure (principal); J18.8 Other pneumonia, unspecified organism; J44.0 Chronic obstructive pulmonary disease with (acute) lower respiratory infection; I34.0 Nonrheumatic mitral (valve) insufficiency; M54.5 Low back pain; B96.89 Other specified bacterial agents as the cause of diseases classified elsewhere; I48.2 Chronic atrial fibrillation; Z79.01 Long term (current) use of anticoagulants
CPT/HCPCS: 36415; 51701; 71010; 71020; 74000; 74020; 80048; 80053; 81001; 83880; 84484; 85007; 85025; 87040; 87086; 93005; 96365; 96375; 97110; 97116; 97162; 97165; 97535; 99284; G0378